=== PATIENT | female | born 1965 | race Caucasian/White ===

== ENCOUNTER 2025-07-28 15:47 | Emergency (ER) | payer SELFPAY ==
[2025-07-28 16:16] VITALS: BP 187/129
[2025-07-28 17:28] VITALS: BP 160/89
[2025-07-28 17:30] VITALS: BP 151/91
--- NOTE | 2025-07-28 17:44 | ED.MUSCINJ ---
HPI-Injury
General
Chief Complaint: Fall
Source: patient
Exam Limitations: none
Time Seen by Provider: 07/28/25 17:31
Nursing documentation reviewed up to this point in time: agreed with
History of Present Illness-Injury
Initial Injury comments:
59-year-old female with no significant past medical history states at work today about 5-1/2 hours ago she was 3 rungs up on a stepladder when she fell backwards, direct impact to her tailbone and then she fell back and hit the back of her head.
She was able to get up and 'hobbled' to the back of the store. There was no loss of consciousness. She has mild tenderness about the posterior neck, a generalized headache 01/20, pain in her tailbone 04/22. Because it was Worker's Comp. she went to
urgent care and they sent her to a second urgent care because they had no radiology that second urgent care sent her here. She drove herself here.
Past History
Past History
ED Past Medical History: None
ED Past Surgical History: None
Social History
Tobacco: Non-smoker
Alcohol: None
Drug: None
Living: with family (Her son lives with her)
Review of Systems
Review of Systems
Allergies reviewed?: Yes
All Other Systems: ROS reviewed and negative except as documented in HPI and ROS
Respiratory: Denies trouble breathing
Cardiac: Denies chest pain or syncope
ABD/GI: Denies abdominal pain or nausea
: Denies incontinence
Musculoskeletal: Reports neck pain and other (Pain 'in my tailbone'); Denies edema
Skin: Reports no symptoms
Neurological: Reports headache ('Like a band around my head' 01/20); Denies dizzy, weakness or numbness
Phy Exam
Physical Exam
Physical Exam:
GENERAL: No acute distress. A&Ox3.
CONSTITUTIONAL: Afebrile.
EYES: clear, conjunctivae normal
ENMT: moist mucus membranes, Pharynx nl
RESPIRATORY: Regular respirations, nonlabored, lungs clear.
CARDIOVASCULAR: Regular rate and rhythm, no murmurs, no rubs.
GI: Soft, nontender, normal BS
MUSCULOSKELETAL: Other than tenderness over the sacrum and coccyx, no spinal bony tenderness. Tender to palpate left paraspinal soft tissues.
The rest of the moves with ease. Well perfused.
SKIN: Warm, dry, pink
PSYCH: Normal mood and affect. Well kept, interactive and appropriate
NEUROLOGIC: Awake, alert and oriented. Speech clear. Cranial nerves II through XII intact. No focal neurological deficits
Injury Course
Orders/Labs/Results
Orders:
Orders
07/28/25 17:43
CT Cervical Spine W/o Iv Contr Urgent
Comment:
Reason For Exam: pain after fall
CT Head W/o Iv Contrast Urgent
Comment:
Reason For Exam: headache after fall
Ibuprofen [Motrin] 600 mg PO NOW STA
07/28/25 17:44
CR Sacrum/coccyx Min 2 View Urgent
Comment:
Reason For Exam: pain after fall direct impact
MDM/Problems Addressed
Differential Diagnosis Includes:
Cervical strain versus fracture
Brain bleed, concussion
Fracture versus contusion of sacrum/coccyx
MDM/Problems Addressed:
59-year-old female with no significant past medical history states at work today about 5-1/2 hours ago she was 3 rungs up on a stepladder when she fell backwards, direct impact to her tailbone and then she fell back and hit the back of her head.
She was able to get up and 'hobbled' to the back of the store. There was no loss of consciousness. She has mild tenderness about the posterior neck, a generalized headache /10, pain in her tailbone /10. Because it was Worker's Comp. she went to
urgent care and they sent her to a second urgent care because they had no radiology that second urgent care sent her here. She drove herself here.
7:30 PM:
Head CT cervical spine CT radiology reports read: No acute intracranial abnormality, no acute osseous abnormality of the C-spine,
x-ray of sacrum and coccyx: initially read by this examiner: no fracture or dislocation noted.
Pt OOB and ambulating well.
*Pulse Oximetry
SaO2: 100
Oxygen Mode of Delivery: Room air
Patient hypoxic: not evaluated
*Critical Care Note
Total Time (30-74mins, 75-104mins- exclusive of procedures): Not Applicable
ED Attending Note
-
Portions of this chart may have been created with voice recognition software.� Occasional wrong word or��sound alike� substitutions may have occurred due to the inherent limitations of voice recognition software.
Discharge Plan
Departure
Patient Disposition: Home (Routine Discharge)
Date of Disposition: 07/28/25
Time of Disposition: 20:11
Patient with high blood pressure during this ER visit?: No
Condition: Good
Discharge Problem:
Fall from ladder, Coccygeal contusion, Minor head injury
Instructions: Head Injury in Adults (DC), Coccyx Injury ED
Prescriptions:
New
hydrocodone-acetaminophen 5-325 mg tablet
1 tab PO Q8H PRN (Reason: Pain) Qty: 10 0RF
cyclobenzaprine 10 mg tablet
10 mg PO BID PRN (Reason: low back/ buttock pain/spasms) Qty: 20 0RF
No Action
clindamycin HCl 300 MG capsule
300 mg PO Q6H
flurbiprofen 100 MG tablet
100 mg PO Q8HPRN PRN (Reason: pain)
prednisone 50 MG tablet
50 mg PO DAILY Qty: 1 0RF
Referrals:
[facility] [Other] - Call in 1-3 days for appt
Mitchel Doshi MD [Active, Orthopedics] - Next open appointment
NONE,* [Family Provider, Internal Medicine]
Stand Alone Forms: Return to Work
Activity Restrictions/Additional Instructions:
As we discussed, call the orthopedic doctor's office tomorrow and make next available appointment.
Ibuprofen 600 mg (with food) every 6 hours as needed for mild to moderate pain and use the Hydrocodone if needed for worse pain.
Flexeril as needed for muscle spasm/pain of low back and buttock area.
Both Flexeril and hydrocodone can make you sleepy and slow the reflexes so do not drive or operate any machinery within 8 hours of taking them.
Call [facility] [address] and make appointment for Friday 08/03 for re evaluation and further instruction on return to work
If any problem, call the Orthopedic doctor and make next available appointment
Interventions
Interventions:
*General Assessment Last Done: 07/28/25 16:16
*Neglect/Abuse Screening Last Done: 07/28/25 16:16
*ED COVID-19 Vaccine History Last Done: 07/28/25 16:16
*ED Influenza Vaccine History Last Done: 07/28/25 16:16
*Risk Screen - Suicide (C-SSRS) Last Done: 07/28/25 16:16
*Nursing Disposition Last Done: 07/28/25 20:43
ED-Musculoskeletal Assessment Last Done: 07/28/25 20:40
ED- Neurological Assessment Last Done: 07/28/25 20:40
ED-Skin Assessment Last Done: 07/28/25 20:40
Discharge Date and Time
Discharge Date/Time: 07/28/25 20:44
Print Language: DANISH
[2025-07-28 18:00] VITALS: BP 145/80
[2025-07-28] MEDS: MOTRIN 600 MG PO (18:01)
== END 2025-07-28 20:44 | disposition home or self-care (01) ==
LOC: EMR 15:47
PROVIDERS: EMERGENCY PHYSICIAN Emergency Medicine
DX: S30.0XXA Contusion of lower back and pelvis, initial encounter (principal); S09.90XA Unspecified injury of head, initial encounter; W11.XXXA Fall on and from ladder, initial encounter; Y92.512 Supermarket, store or market as the place of occurrence of the external cause; Y99.0 Civilian activity done for income or pay
CPT/HCPCS: 99284; 70450; 72125; 72220